=== PATIENT | male | born 1955 | race Caucasian/White ===

== ENCOUNTER 2017-12-30 14:44 | Inpatient (IN) ==
--- OUTSIDE RECORDS SUMMARY | 2017-12-30 15:14 | External Medical Summary | Continuity of Care Document ---
:1955 Author Organization Via [facility] Allergies Active Description Code Type Severity Reaction Onset Reported/ Identified Relationship Clinical to Patient Status Yes Penicillins Penic Aller I RASH 07/12/2010 illin gy s Yes penicillin NKMA N/A N/A 11/12/2013 Medications Medication Packaging Start Stop Route Dosage Sig Date Date PO 25 mg Hydrochlorothiazide 0 DAILY azithromycin(azithromyc 4 014 See in 250 mg oral tablet) Instructi ons, take 2 tabs today, then one daily for 4 days., 6 tabs lisinopril(lisinopril 5 015 See 20 mg oral tablet) Instructi ons, TAKE ONE TABLET BY MOUTH EVERY DAY, 90 tabs hydrochlorothiazide(hyd 5 015 See rochlorothiazide 25 mg Instructi oral tablet) ons, TAKE ONE TABLET BY MOUTH EVERY DAY, 90 tabs 1 tabs Oral 25 mg losartan(losartan 25 mg 5 016 25 mg=1 oral tablet) tabs, Oral, Daily, 90 tabs, 1 Refill(s) 1 tabs Oral 25 mg hydrochlorothiazide(hyd 6 016 25 mg=1 rochlorothiazide 25 mg tabs, oral tablet) Oral, Daily, for 90 days, 90 tabs, 1 Refill(s) 1 tabs Oral 50 mg losartan(losartan 50 mg 6 016 50 mg=1 oral tablet) tabs, Oral, Daily, 90 tabs, 1 Refill(s) 1 tabs Oral 12.5 mg carvedilol(Coreg 12.5 6 017 12.5 mg oral tablet) mg=1 tabs, Oral, Daily, 0 Refill(s) 1 tabs Oral sulfamethoxazole-trimet 6 016 1 tabs, hoprim(Bactrim DS 800 Oral, mg-160 mg oral tablet) BID, for 7 days, 14 tabs, 0 Refill(s) Coreg PO 12.5 mg 6 DAILY 1 tabs Oral 10 mg cyclobenzaprine(cyclobe 6 017 10 mg=1 nzaprine 10 mg oral tabs, tablet) Oral, TID, PRN: as needed for spasm, 60 tabs, 0 Refill(s) 1 tabs Oral 50 mg traMADol(traMADol 50 mg 6 50 mg=1 oral tablet) tabs, Oral, q12hr, S. Dillons, PRN: as needed for pain, 60 tabs, 0 Refill(s) zoster 0.65 mL SubCutaneous vaccine live(Zostavax 6 016 0.65 subcutaneous injection) mL, SubCutane ous, Once losartan(losartan 50 mg 6 017 See oral tablet) Instructi ons, TAKE ONE TABLET BY MOUTH DAILY, 90 tabs 1 caps Oral 500 mg cephalexin(Keflex 500 6 017 500 mg oral capsule) mg=1 caps, Oral, q6hr, for 14 days, 56 caps, 0 Refill(s) hydrochlorothiazide(hyd 7 017 See roCHLOROthiazide 25 mg Instructi oral tablet) ons, TAKE ONE TABLET BY MOUTH DAILY, 90 tabs 1 caps Oral 40 mg omeprazole(PriLOSEC 40 7 40 mg=1 mg oral delayed release caps, capsule) Oral, Daily, 30 caps, 0 Refill(s) 1 tabs Oral 81 mg aspirin(aspirin 81 mg 7 81 mg=1 oral tablet) tabs, Oral, Daily, 90 tabs, 0 Refill(s) Ecotrin PO 81 mg 8 DAILY Problems Date Dx Attending Type Code Diagnosis Diagnosed By Coded 12/07/2015 Luis Fernando Victoria K92.1 Irena M 12/07/2015 Luis Fernando Victoria Final Z80.0 Family history of M malignant neoplasm of digestive organs 12/07/2015 Luis Fernando Victoria L02.91 Cutaneous abscess, M unspecified 12/07/2015 Luis Fernando Victoria L57.0 Actinic keratosis M 12/07/2015 Luis Fernando Victoria L98.9 Disorder of the skin M and subcutaneous tissue, unspecified 12/07/2015 Luis Fernando Victoria Z85.828 Personal history of M other malignant neoplasm of skin 01/19/2016 Luis Fernando Victoria Z98.89 Other specified M postprocedural states 05/03/2016 Henry De Guzman Final I10 Essential (primary) W hypertension 05/03/2016 Henry De Guzman Final K62.5 Hemorrhage of anus W and rectum 05/03/2016 Henry De Guzman N20.0 Calculus of kidney W 07/13/2016 Dev Hernandez Final J32.0 Chronic maxillary E sinusitis 12/04/2016 Henry De Guzman I10 Essential (primary) W hypertension 12/04/2016 Henry De Guzman K21.9 Gastro-esophageal W reflux disease without esophagitis 12/04/2016 Henry De Guzman K62.5 Hemorrhage of anus W and rectum 12/04/2016 Henry De Guzman M54.9 Dorsalgia, W unspecified 12/04/2016 Henry De Guzman N20.0 Calculus of kidney W 12/04/2016 Henry De Guzman N28.9 Disorder of kidney W and ureter, unspecified 12/04/2016 Henry De Guzman Z12.5 Encounter for W screening for malignant neoplasm of prostate Procedures Code Description [place] [address] Destruction (eg, 12/07/2015 laser surgery, electrosurgery, cryosurgery, chemosurgery, surgical curettement), premalignant lesions (eg, actinic keratoses); first lesion 62924 Culture, 12/07/2015 bacterial; any other source except urine, blood or stool, aerobic, with isolation and presumptive identification of isolates.. 63671 Culture, 12/07/2015 bacterial; any source, except blood, anaerobic with isolation and presumptive identification of isolates.. 45205 Culture, typing; 12/07/2015 immunologic method, other than immunofluoresence (eg, agglutination grouping), per antiserum.. 93972 Susceptibility 12/07/2015 studies, antimicrobial agent; microdilution or agar dilution (minimum inhibitory concentration [OFE] or breakpoint), each multi-antimicrobial, per plate.. 32347 Office or other 12/07/2015 outpatient visit for the evaluation and management of an established patient, which requires at least 2 of these 3 nagy components: A detailed history; A detailed examination; Medical d 26863 Postoperative 01/19/2016 follow-up visit, normally included in the surgical package, to indicate that an evaluation and management service was performed during a postoperative period for [place] [address] Radiologic 05/03/2016 examination, spine, lumbosacral; 2 or 3 views.. 28625 Radiologic 05/03/2016 examination, [place] [address] Urinalysis, by 05/03/2016 dip stick or tablet reagent for bilirubin, glucose, hemoglobin, ketones, leukocytes, nitrite, pH, protein, specific gravity, urobilinogen, any number of these constituents; [place] w 900[address] Immunization 05/03/2016 administration (includes percutaneous, intradermal, subcutaneous, or intramuscular injections); 1 vaccine (single or combination vaccine/toxoid).. 55852 Zoster 05/03/2016 (shingles) vaccine (HZV), live, for subcutaneous injection 23773 Office or other 05/03/2016 outpatient visit for the evaluation and management of an established patient, which requires at least 2 of these 3 nagy components: A detailed history; A detailed examination; Medical d 34622 Collection of 12/04/2016 venous blood by venipuncture 29978 Comprehensive 12/04/2016 metabolic panel This panel must include the following: Albumin (32400) Bilirubin, total (99348) Calcium, total (76036) Carbon dioxide (bicarbonate) (77920) Chloride (51055) Creatinine (8 80686 Urinalysis, by 12/04/2016 dip stick or tablet reagent for bilirubin, glucose, hemoglobin, ketones, leukocytes, nitrite, pH, protein, specific gravity, urobilinogen, any number of these constituents; [place] w 61077 Prostate 12/04/2016 specific antigen (PSA); total 42964 Blood count; 12/04/2016 complete (CBC), automated (Hgb, Hct, RBC, WBC and platelet count) and automated differential WBC count 07975 Office or other 12/04/2016 outpatient visit for the evaluation and management of an established patient, which requires at least 2 of these 3 nagy components: A detailed history; A detailed examination; Medical d Results Test Result Range L100.0050 - 12/27/15 09:19 WBC - WHITE BLOOD COUNT 4.4 T/MM3 4.5-11.0 RED BLOOD COUNT 5.64 M/MM3 4.50-5.90 HGB - HEMOGLOBIN 15.8 GM/DL 13.5-17.5 HCT - HEMATOCRIT 47.5 % 41-53 MEAN CORPUSCULAR VOLUME 84.2 UM3 80-100 MEAN CORPUSCULAR HGB 28.0 UUG 26-34 MEAN CORPUSCULAR HGB CONC(MCHC 33.3 GM/DL 31-37 RDW STANDARD DEVIATION 40.3 FL 36.9-50.2 PLT - PLATELET COUNT 225 T/MM3 130-400 MEAN PLATELET VOLUME 10.0 UM3 9.4-12.4 NEUTROPHILS % (AUTO) 38.1 % 33-66 LYMPHOCYTES % (AUTO) 50.2 % 23-45 MONOCYTES % (AUTO) 11.0 % 0-9.0 EOSINOPHILS % (AUTO) 0.0 % 0-4 BASOPHILS % (AUTO) 0.7 % 0-2 IMMATURE GRANULOCYTE % (AUTO) 0.0 % 0.0-0.5 NEUTROPHILS # (AUTO) 1.7 T/MM3 1.8-7.7 LYMPHOCYTES # (AUTO) 2.2 T/MM3 1-4.8 MONOCYTES # (AUTO) 0.5 T/MM3 0-0.8 EOSINOPHILS # (AUTO) 0.0 T/MM3 0-0.5 BASOPHILS # (AUTO) 0.0 T/MM3 0-0.2 IMMATURE GRANULOCYTE # (AUTO) 0.00 T/MM3 0.00-0.03 L200.0050 - 12/27/15 09:19 ICTERUS 3 0-7 HEMOLYSIS < 15 0-25 Urinalysis with reflex microscopic - 05/03/16 16:16 Appearance Clear NA Bilirubin Negative NA Negative Blood Negative NA Negative Color Yellow NA Glucose, Urine Negative Negative Ketones Negative Negative Leukocyte Esterase Negative NA Negative Nitrites Negative NA Negative pH 6.0 NA 5.0-8.0 Protein Negative Negative Specific [place] 1.024 NA 1.003-1.030 UA Collection type Voided NA Urobilinogen 0.2 mg/dL <1.0 CBC With Platelet and Differential - 12/04/16 15:45 Absolute Basophils 0.04 10*3/uL 0.00-0.20 Absolute Eosinophils 0.23 10*3/uL 0.00-0.50 Absolute Lymphocytes 1.73 10*3/uL 0.80-3.30 Absolute Monocytes 0.45 10*3/uL 0.30-1.00 Absolute Neutrophils 3.40 10*3/uL 1.90-7.00 Basophils 1 % 0-2 Eosinophils 4 % 0-4 HCT 47.1 % 42.0-52.0 HGB 15.6 g/dL 14.0-18.0 Immature Granulocytes 0.2 % 0.0-1.0 Lymphocytes 30 % 20-46 MCH 27.8 pg 27.0-32.0 MCHC 33.1 g/dL 32.0-36.0 MCV 83.8 fL 82.0-99.0 Monocytes 8 % 4-11 MPV 11.3 fL 8.8-14.8 Neutrophils 58 % 51-75 Platelet Count 195 K/uL 150-400 RBC 5.62 10*6/uL 4.60-6.20 RDW 12.9 % 11.5-14.5 WBC 5.9 K/uL 4.8-10.8 Comprehensive Metabolic Panel (CMP) - 12/04/16 15:45 Albumin 4.3 g/dL 3.4-4.8 Alkaline Phosphatase 67 U/L 40-150 ALT (SGPT) 20 U/L 0-55 Anion Gap 9 mEq/L 3-20 AST (SGOT) 22 U/L 5-34 Bilirubin Total 1.2 mg/dL 0.2-1.2 BUN 21 mg/dL 8-26 Calcium 9.1 mg/dL 8.4-10.2 Chloride 105 mEq/L 99-111 CO2 27 mEq/L 23-31 Creatinine 1.08 mg/dL 0.72-1.25 Globulin 2.9 g/dL 1.8-4.0 Glucose 104 mg/dL 70-99 Potassium 3.8 mEq/L 3.5-5.2 Protein 7.2 g/dL 6.0-7.6 Sodium 141 mEq/L 135-144 eGFR - 12/04/16 15:45 eGFR >60 mL/min >60 PSA - 12/04/16 15:45 PSA 1.5 ng/mL 0.0-4.5 Urinalysis with reflex microscopic - 12/04/16 15:55 Appearance Clear NA Bilirubin Negative NA Negative Blood Negative NA Negative Color Yellow NA Glucose, Urine Negative Negative Ketones Negative Negative Leukocyte Esterase Negative NA Negative Nitrites Negative NA Negative pH 6.0 NA 5.0-8.0 Protein Negative Negative Specific [place] 1.015 NA 1.003-1.030 UA Collection type Voided NA Urobilinogen 0.2 mg/dL <1.0 Encounters ACCT No. Visit Discharge Status Pt. Type Provider Facility Loc./Unit Complaint Date/Time [id number] 10/06/2013 10/06/2013 CLS Outpatie 15:57:00 23:59:59 nt [id number]/05/2016 Document [id number] 05:16:33 Registra tion [id number] 08/24/2016 Document [id number] 05:16:58 Registra tion [id number] 07/14/2016 Document [id number] 05:17:01 Registra tion [id number] 06/21/2016 Document [id number] 05:16:39 Registra tion [id number] 05/04/2016 Document [id number] 05:17:30 Registra tion [id number] 12/08/2015 Document [id number] 05:16:56 Registra tion [id number] 11/02/2015 Document [id number] 05:16:46 Registra tion [id number] 05/05/2015 Document [id number] 14:07:16 Registra tion [id number] 05/05/2015 Document [id number] 13:37:26 Registra tion [id number] 05/05/2015 Document [id number] 09:44:28 Registra tion [id number] 12/30/2017 Document [id number] 15:09:00 Registra tion [id number] 12/17/2015 Document [id number] 07:38:00 Registra tion [id number] 12/04/2016 12/04/2016 DIS Outpatie Luinstra, Via [facility] New FM 6 mth rechk 6551 15:21:00 23:59:00 nt [facility] [id number] 07/13/2016 07/13/2016 DIS Outpatie Komarek, Via [facility] New IC SINUS PAIN 1029 12:58:00 23:59:00 nt Dev Jj [facility]ED [facility] [id number] 05/03/2016 05/03/2016 DIS Outpatie Luinstra, Via [facility] New FM TCPA 6 mo 3851 15:20:00 23:59:00 nt Henry Gab [facility]j [facility] [id number] 01/19/2016 01/19/2016 DIS Outpatie Nan Via [facility] [place] [address] 08:25:00 23:59:00 nt , Luis Fernando Jj [facility] [id number] 12/07/2015 12/07/2015 CLS Outpatie Nan Via [facility] Surg colonoscopy 3895 14:20:00 23:59:59 nt , Luis Fernando [facility]j [facility] [id number] 11/01/2015 11/01/2015 DIS Outpatie Luinstra, Via [facility] New FM NPT EST CARE 8235 15:23:00 23:59:00 nt Henry Jj REFERRAL TO Clinic NAN [id number] 03/08/2015 03/08/2015 DIS Outpatie Reilly, [facility] LEFT BIG TOE 1707 15:50:00 23:59:00 nt Jesus Good Анна Med [facility] Clinic [id number] 08/18/2014 08/18/2014 DIS Outpatie Nan Via [facility] New Surg suture 5056 15:53:00 23:59:00 nt Luis Fernando removal Clinic [id number] 08/05/2014 08/05/2014 CLS Outpatie Nan Via [facility] New Surg skin lesion 5532 13:58:00 23:59:59 nt , Luis Fernando Jj Clinic [id number] 07/03/2014 07/03/2014 DIS Outpatie Reilly, [facility] med check 4974 16:24:00 23:59:00 nt Jesus Good Анна Med Clinic [id number] 09/08/2014 Document 2922 15:36:00 Registra tion
--- OUTSIDE RECORDS SUMMARY | 2017-12-30 15:14 | External Medical Summary | Referral Summary ---
:1955 Author Organization [facility] Address [address] [place] [address] [place] [address] Care Team Providers Name Role Phone Jesus Reilly Primary Care Physician Encounter [facility] [id number] Date(s): 03/08/15 - 03/08/15 [facility] [address] [place] [address] [place] [phone] [place] Discharge Diagnosis: Essential hypertension Discharge Diagnosis: Onychomycosis with ingrown toenail Discharge Diagnosis: Cough due to SHARRI inhibitor Discharge Disposition: 01-Home or Self Care Attending Physician: Jesus Reilly MD Admitting Physician: Jesus Reilly MD Vital Signs Most recent to oldest [Reference Range]: 1 Temperature Tympanic [36.6-38.1 degC] 36.7 degC (03/08/15 4:01 PM) Peripheral Pulse Rate [60-100 bpm] 73 bpm (03/08/15 4:01 PM) Blood Pressure [90-140/60-90 mmHg] 130/94 mmHg (03/08/15 4:01 PM) SpO2 97 % (03/08/15 4:01 PM) Problem List Condition Effective Dates Status Health Status Informant Acute bronchitis(Confirmed) Active Acute maxillary sinusitis(Confirmed) Active Benign essential Active hypertension(Confirmed) Unspecified sinusitis Active (chronic)(Confirmed) 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) Unspecified hearing loss(Confirmed) Active Hiatal hernia(Confirmed) Active Kidney disease(Confirmed) Active Kidney stones(Confirmed) Active Schatzki's ring(Confirmed) Active Allergies, Adverse Reactions, Alerts Substance Reaction Severity Status penicillin Active Medications hydrochlorothiazide 25 mg oral tablet See Instructions, TAKE ONE TABLET BY MOUTH EVERY DAY, # 90 tabs, eRx: [facility] #[id number], TAKEONE TABLET BY MOUTH EVERY DAY Start Date: 04/09/15 Status: OrderedLISINOPRIL 20 MG TABLET See Instructions, TAKE ONE TABLET BY MOUTH EVERY DAY, # 90 tabs, eRx: [facility] #[id number], TAKEONE TABLET BY MOUTH EVERY DAY Start Date: 06/26/14 Status: Orderedlosartan 25 mg oral tablet 25 mg 1 tabs, Oral, Daily, # 90 tabs, 1 Refill(s), Pharmacy: [facility] # [id number], 1 tabs Oral Daily Start Date: 03/08/15 Status: OrderedNon-Formulary Med See Instructions, blood pressure, 0 Refill(s) Start Date: 03/14/14 Status: Ordered Results No data available for this section Immunizations Vaccine Date Refusal Reason tetanus/diphth/pertuss (Tdap) adult/adol 06/27/10 influenza virus vaccine, live 06/27/10 Procedures Procedure Date Related Diagnosis Body Site Excision of basal cell carcinoma1 08/05/14 Balloon dilatation of esophagus 2011 Esophagogastroduodenoscopy2, 3 2011 Colonoscopy-normal 2009 Colonoscopy4, 5 2006 Colonoscopy-normal 1999 Hospitalization - left hand injury 1970 1above left [id number] EGD: Benign polyp, GERD-TX w/PPI. Swallowing improved. F/U [id number] hernia. Schatski's laes6cowprcuytwk polyp with low grade [id number] NL, +Fam hx repeat in 5 yrs. 2009 Social History Social History Type Response Smoking Status Never smoker Assessment and Plan Extracted from: Title: Ambulatory Patient Education Author: Jesus Reilly MD Date: Family Medicine Hypertension Hypertension, commonly called high blood pressure, is when the force of blood pumping through your arteries is too strong. Your arteries are the blood vessels that carry blood from your heart throughout your body. A blood pressure reading consists of a higher number over a lower number, such as 110/72. The higher number (systolic) is the pressure inside your arteries when your heart pumps. The lower n umber (diastolic) is the pressure inside your arteries when your heart relaxes. Ideally you want your blood pressure below 120/80. Hypertension forces your heart to work harder to pump blood. Your arteries may become narrow or stiff. Having hypertension puts you at risk for heart disease, stroke, and other problems. RISK FACTORS Some risk factors for high blood pressure are controllable. Others are not. Risk factors you cannot control include: Race. You may be at higher risk if you are . Age. Risk increases with age. Gender. Men are at higher risk than women before age 45 years. After age 65, women are at higher risk than men. Risk factors you can control include: Not getting enough exercise or physical activity. Being overweight. Getting too much fat, sugar, calories, or salt in your diet. Drinking too much alcohol. SIGNS AND SYMPTOMS Hypertension does not usually cause signs or symptoms. Extremely high blood pressure (hypertensive crisis) may cause headache, anxiety, shortness of breath , and nosebleed. DIAGNOSIS To check if you have hypertension, your health care provider will measure your blood pressure while you are seated, with your arm held at the level of your heart. It should be measured at least twice us ing the same arm. Certain conditions can cause a difference in blood pressure between your right and left arms. A blood pressure reading that is higher than normal on one occasion does not mean that you need treatment. If one blood pressure reading is high, ask your health care provider about having it checked again. TREATMENT Treating high blood pressure includes making lifestyle changes and possibly taking medication. Living a healthy lifestyle can help lower high blood pressure. You may need to change some of your habits. Lifestyle changes may include: Following the DASH diet. This diet is high in fruits, vegetables, and whole grains. It is low in salt, red meat, and added sugars. Getting at least 2 1/2 hours of brisk physical activity every week. Losing weight if necessary. Not smoking. Limiting alcoholic beverages. Learning ways to reduce stress. If lifestyle changes are not enough to get your blood pressure under control , your health care provider may prescribe medicine. You may need to take more than one. Work closely with your health care provider to understand the risks and benefits. HOME CARE INSTRUCTIONS Have your blood pressure rechecked as directed by your health care provider. Only take medicine as directed by your health care provider. Follow the directions carefully. Blood pressure medicines must be taken as prescribed. The medicine does not work as well when you skip doses. Skipping doses also puts you at risk for problems. Do not smoke. Monitor your blood pressure at home as directed by your health care provider. SEEK MEDICAL CARE IF: You think you are having a reaction to medicines taken. You have recurrent headaches or feel dizzy. You have swelling in your ankles. You have trouble with your vision. SEEK IMMEDIATE MEDICAL CARE IF: You develop a severe headache or confusion. You have unusual weakness, numbness, or feel faint. You have severe chest or abdominal pain. You vomit repeatedly. You have trouble breathing. MAKE SURE YOU: Understand these instructions. Will watch your condition. Will get help right away if you are not doing well or get worse. Document Released: 07/02/2006 Document Revised: 07/07/2014 Document Reviewed: 04/24/2014 ExitCare Patient Information 2015 [employer]. This information is not intended to replace advice given to you by your health care provider. Make sure you discuss any questions you have with your health care provider. Follow Up With: Where: When: Jesus Reilly [address] [place] [address] Drive; [place] [address] [place] (8) Within 1 to 2 weeks, only if needed Comments: Extracted from: Title: Office Visit Note Author: Jesus Reilly MD Date: 03/08/15 Assessment/Plan Cough due to SAHRRI inhibitor He will be changed from lisinopril to losartan 25 mg daily. Essential hypertension He was advised to call his blood pressure measurements and as needed. Orders: losartan, 25 mg 1 tabs, Oral, Daily, # 90 tabs, 1 Refill(s), Pharmacy : [facility] #[id number], 1 tabs Oral Daily Addendum by Jesus Reilly MD on Ingrown toenail and onychomycosis: He will be March 08, 2015 16:37:24 CDT scheduled for podiatry consult with Dr. Lucas
--- OUTSIDE RECORDS SUMMARY | 2017-12-30 15:14 | External Medical Summary | Referral Summary ---
:1955 Author Organization [facility] Address [address] [place] [address] [place] [id number] Care Team Providers Name Role Phone eHnry De Guzman Primary Care Physician Encounter VC Date(s): 12/07/15 - 12/07/15 [facility] [address] [place] [address] [place] [phone] [place] Discharge Diagnosis: Family history of colon cancer Discharge Diagnosis: History of basal cell cancer Discharge Diagnosis: Changing skin lesion Discharge Diagnosis: Floyd blood in stool Discharge Diagnosis: AK (actinic keratosis) Discharge Diagnosis: Abscess Discharge Disposition: 01-Home or Self Care Attending Physician: Luis Fernando Victoria MD Admitting Physician: Luis Fernando Victoria MD Referring Physician: Henry De Guzman MD Vital Signs Most recent to oldest [Reference Range]: 1 Temperature Tympanic [36.6-38.1 degC] 37.4 degC (12/07/15 2:27 PM) Blood Pressure [90-140/60-90 mmHg] 140/88 mmHg (12/07/15 2:27 PM) Mean Arterial Pressure, Cuff 105 mmHg (12/07/15 2:27 PM) Problem List Condition Effective Dates Status Health Status Informant Acute bronchitis(Confirmed) Active Acute maxillary sinusitis(Confirmed) Active BCC (basal cell carcinoma)(Confirmed) Active Benign essential Active hypertension(Confirmed) Unspecified sinusitis Active (chronic)(Confirmed) 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) Unspecified hearing loss(Confirmed) Active Hiatal hernia(Confirmed) Active Kidney disease(Confirmed) Active Kidney stones(Confirmed) Active Bright red rectal bleeding(Confirmed) Active Schatzki's ring(Confirmed) Active Allergies, Adverse Reactions, Alerts Substance Reaction Severity Status penicillin Active Medications Bactrim DS 800 mg-160 mg oral tablet 1 tabs, Oral, BID, X 7 days, # 14 tabs, 0 Refill(s), Pharmacy: [facility] #[id number] Start Date: 12/07/15 Stop Date: 12/14/15 Status: OrderedCoreg 12.5 mg oral tablet 12.5 mg 1 tabs, Oral, Daily, 0 Refill(s) Start Date: 12/07/15 Status: Orderedhydrochlorothiazide 25 mg oral tablet 25 mg 1 tabs, Oral, Daily, X 90 days, # 90 tabs, 1 Refill(s), Pharmacy: [facility] #[id number], 1 tabs Oral Daily,x90 days Start Date: 11/01/15 Stop Date: 04/29/16 Status: Ordered Results No data available for this section Immunizations Vaccine Date Refusal Reason tetanus/diphth/pertuss (Tdap) adult/adol 06/27/10 influenza virus vaccine, live 06/27/10 Procedures Procedure Date Related Diagnosis Body Site Destruction (eg, laser surgery, electrosurgery, 12/07/15 cryosurgery, chemosurgery, surgical curettement), premalignant lesions (eg, actinic keratoses); first lesion Excision of basal cell carcinoma1 08/05/14 Balloon dilatation of esophagus 2011 Esophagogastroduodenoscopy2, 3 2011 Colonoscopy-normal 2009 Colonoscopy4, 5 2006 Colonoscopy-normal 1999 Hospitalization - left hand injury 1970 1above left [id number] EGD: Benign polyp, GERD-TX w/PPI. Swallowing improved. F/U [id number] hernia. Schatski's [id number] polyp with low grade [id number] NL, +Fam hx repeat in 5 yrs. 2009 Social History Social History Type Response Smoking Status Never smoker Assessment and Plan Extracted from: Title: Ambulatory Patient Education Author: Luis Fernando Victoria MD Date: Family Medicine Basal Cell Carcinoma Basal cell carcinoma is the most common form of skin cancer. It begins in the basal cells, which are at the bottom of the outer skin layer (epidermis). CAUSES Sun exposure is the most common cause of basal cell carcinoma. Basal cell carcinoma occurs most often on parts of the body that are frequently exposed to the sun, including the: Scalp. Ears. Neck. Face. Arms. Backs of the hands. Legs. However, basal cell carcinoma can occur anywhere on the body. Rarely, tumors develop on areas not exposed to the sun. Other causes of basal cell carcinoma can include: Exposure to arsenic. Exposure to radiation. Certain genetic syndromes, such as xeroderma pigmentosum. RISK FACTORS People at highest risk for basal cell carcinoma include those with: Fair skin. Blonde or red hair. Blue, green, or muniz eyes. Childhood freckling. Factors that increase your risk for basal cell carcinoma include: Sun exposure over long periods of time. Childhood sun exposure appears to be a more significant factor than sun exposure as an adult. Repeated sunburns. Use of tanning beds. Having a weakened immune system. SYMPTOMS Five signs of basal cell carcinoma are: An open sore that bleeds, oozes, or crusts. The sore may remain open for 3 or more weeks. This can be an early sign of basal cell carcinoma. Basal cell carcinoma can mimic a pimple that will not heal. A reddish or irritated area which may crust, itch, or cause discomfort. This may occur on areas expose d to the sun. These patches might be easier felt than seen. A shiny, pearly, or translucent bump that is pink, red, or white. The bump may also be chawla, black, or brown, especially in dark haired people. These bumps can be confused with moles. A pink growth with a slightly elevated, rolled border, and a crusted indentation in the center. As the growth slowly enlarges, tiny blood vessels may develop on the surface. A scar-like white, yellow, or waxy area that looks like shiny, stretched skin. It often has irregular borders. This may be a sign of more aggressive basal cell carcinoma. DIAGNOSIS Your caregiver may be able to tell what is wrong by doing a physical exam. Often, a tissue sample (biopsy) is also taken. The tissue is examined under a microscope. TREATMENT The treatment for basal cell carcinoma depends on the type, size, location, and number of tumors. Possible treatments include: Mohs surgery. This is a procedure done by a skin doctor (anesthesia director or Mohs surgeon) in his or her office. The cancerous cells are removed layer by layer. This treatment has a high cure rate. Surgical removal of the tumor. Freezing the tumor with liquid nitrogen (cryosurgery). Plastic surgery to remove the tumor, in the case of large tumors. Radiation. This may be used for tumors on the face. Photodynamic therapy. A chemical cream is applied to the skin and light exposure is used to activate the chemical. Chemical treatments, such as imiquimod cream and interferon injections. This may be used to remove superficial tumors with minimal scarring. Electrodesiccation and curettage. This involves alternately scraping and burning the tumor, using an electric current to control bleeding. Basal cell carcinoma can almost always be cured. It rarely spreads to other areas of the body (metastasizes). Basal cell carcinoma may come back at the same location (recur), but it can be treated again if this occurs. PREVENTION Avoid the sun between 10:00 a.m. and 4:00 pm when it is the strongest. Use a sunscreen or sunblock with a sun protection factor of 30 or greater. Apply sunscreen at least 30 minutes before exposure to the sun. Reapply sunscreen every 2 to 4 hours while you are outside, after swimming, and after excessive sweating. Always wear protective hats, clothing, and sunglasses with ultraviolet protection. Avoid tanning beds. HOME CARE INSTRUCTIONS Avoid unprotected sun exposure. Follow your caregiver's instructions for self-exams. Look for new spots or changes in your skin. Keep all follow-up appointments as directed by your caregiver. SEEK MEDICAL CARE IF: You notice any new spots or changes in your skin. You have had a basal cell carcinoma tumor removed and you notice a new growth in the same location. This information is not intended to replace advice given to you by your health care provider. Make sure you discuss any questions you have with your health care provider. Document Released: 01/06/2004 Document Revised: 12/31/2012 Document Reviewed: 03/25/2012 ExitCare Patient Information 2015 [employer] [facility]. No follow up information was provided.
--- OUTSIDE RECORDS SUMMARY | 2017-12-30 15:14 | External Medical Summary | Referral Summary ---
:1955 Author [facility] Address [address] [place] [address] [place] [phone] Care Team Providers Name Role Phone Henry De Guzman Primary Care Physician Encounter Date(s): 05/03/16 - 05/03/16 [facility] [place] [phone] [place] Discharge Diagnosis: Benign essential hypertension Discharge Diagnosis: Kidney stones Discharge Diagnosis: Bright red rectal bleeding Discharge Disposition: 01-Home or Self Care Attending Physician: Henry De Guzman MD Admitting Physician: Henry De Guzman MD Vital Signs Most recent to oldest [Reference Range]: 1 Blood Pressure [90-140/60-90 mmHg] 140/100 mmHg (05/03/16 3:33 PM) Problem List Condition Effective Dates Status Health Status Informant Acute bronchitis(Confirmed) Active Acute maxillary sinusitis(Confirmed) Active BCC (basal cell carcinoma)(Confirmed) Active Benign essential Active hypertension(Confirmed) Unspecified sinusitis Active (chronic)(Confirmed) 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) Unspecified hearing loss(Confirmed) Active Hiatal hernia(Confirmed) Active Kidney disease(Confirmed) Active Kidney stones(Confirmed) Active Methicillin resistant Staphylococcus Active aureus(Confirmed)1 Bright red rectal bleeding(Confirmed) Active Schatzki's ring(Confirmed) Active 1Abscess from Leg R collected 12/07/15 15:12:00 CDT Allergies, Adverse Reactions, Alerts Substance Reaction Severity Status penicillin Active Medications Coreg 12.5 mg oral tablet 12.5 mg 1 tabs, Oral, Daily, 0 Refill(s) Start Date: 12/07/15 Status: Orderedcyclobenzaprine 10 mg oral tablet 10 mg 1 tabs, Oral, TID, as needed for spasm, # 60 tabs, 0 Refill(s), Pharmacy: [facility] #[id number], 1 tabs Oral TID,PRN:as needed for spasm Start Date: 05/03/16 Status: OrderedtraMADol 50 mg oral tablet 50 mg 1 tabs, Oral, q12hr, as needed for pain, S. Alfonso, # 60 tabs, 0 Refill(s ) Start Date: 05/03/16 Status: Ordered Results Urinalysis Most recent to oldest [Reference Range]: 1 UA Color Yellow (05/03/16 4:16 PM) UA Appear Clear (05/03/16 4:16 PM) UA pH [5.0-8.0] 6.0 (05/03/16 4:16 PM) UA Leuk Est [Negative] Negative (05/03/16 4:16 PM) UA Nitrite [Negative] Negative (05/03/16 4:16 PM) UA Protein [Negative] Negative (05/03/16 4:16 PM) UA Glucose [Negative] Negative (05/03/16 4:16 PM) UA Ketones [Negative] Negative (05/03/16 4:16 PM) UA Urobilinogen [<1.0 mg/dL] 0.2 mg/dL (05/03/16 4:16 PM) UA Bili [Negative] Negative (05/03/16 4:16 PM) UA Blood [Negative] Negative (05/03/16 4:16 PM) UA Spec Grav [1.003-1.030] 1.024 (05/03/16 4:16 PM) Type Voided (05/03/16 4:16 PM) Immunizations Vaccine Date Refusal Reason tetanus/diphth/pertuss (Tdap) adult/adol 06/27/10 influenza virus vaccine, live 06/27/10 zoster vaccine live 05/03/16 Procedures Procedure Date Related Diagnosis Body Site Colonoscopy normal1 12/27/15 Excision of basal cell carcinoma2 08/05/14 Balloon dilatation of esophagus 2011 Esophagogastroduodenoscopy3, 4 2011 Colonoscopy-normal 2009 Colonoscopy5, 6 2006 Colonoscopy-normal 1999 Hospitalization - left hand injury 1970 1Hyperplastic polyp, family history colon cancer in 2 first-degree relatives, diverticulosis, repeat in 5 [id number] left [id number] EGD: Benign polyp, GERD-TX w/PPI. Swallowing improved. F/U [id number] hernia. Schatski's [id number] polyp with low grade [id number]-odmht NL, +Fam hx repeat in 5 yrs. 2010 Social History Social History Type Response Smoking Status Never smoker Assessment and Plan Extracted from: Title: Ambulatory Patient Education Author: Henry De Guzman MD Date: 05/03 Musculoskeletal Back Pain, Adult Back pain is very common in adults.The cause of back pain is rarely dangerous and the pain often gets better over time.The cause of your back pain may not be known. Some common causes of back pain include: Strain of the muscles or ligaments supporting the spine. Wear and tear (degeneration) of the spinal disks. Arthritis. Direct injury to the back. For many people, back pain may return. Since back pain is rarely dangerous, most people can learn to manage this condition on their own. HOME CARE INSTRUCTIONS Watch your back pain for any changes. The following actions may help to lessen any discomfort you are feeling: Remain active. 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 Do not sit, drive, or dye boarding machine operator one place for more than 30 minutes at a time. Take short walks on even surfaces as soon as you are able.Try to increase the length of time you walk each day. Exercise regularly as directed by your health care provider. Exercise helps your back heal faster. It also helps avoid future injury by keeping your muscles strong and flexible. Do not stay in bed.Resting more than 12 days can delay your recovery. Pay attention to your body when you bend and lift. The most comfortable positions are those that put less stress on your recovering back. Always use proper lifting techniques, including: Bending your knees. Keeping the load close to your body. Avoiding twisting. Find a comfortable position to sleep. Use a firm mattress and lie on your side with your knees slightly bent. If you lie on your back, put a pillow under your knees. Avoid feeling anxious or stressed.Stress increases muscle tension and can worsen back pain.It is important to recognize when you are anxious or stressed and learn ways to manage it, such as with exercise. Take medicines only as directed by your health care provider. Over-the- counter medicines to reduce pain and inflammation are often the most helpful. Your health care provider may prescribe muscl e relaxant drugs.These medicines help dull your pain so you can more quickly return to your normal activities and healthy exercise. Apply ice to the injured area: Put ice in a plastic bag. Place a towel between your skin and the bag. Leave the ice on for 20 minutes, 23 times a day for the first 23 days. After that, ice and heat may be alternated to reduce pain and spasms. Maintain a healthy weight. Excess weight puts extra stress on your back and makes it difficult to maintain good posture. SEEK MEDICAL CARE IF: You have pain that is not relieved with rest or medicine. You have increasing pain going down into the legs or buttocks. You have pain that does not improve in one week. You have night pain. You lose weight. You have a fever or chills. SEEK IMMEDIATE MEDICAL CARE IF: You develop new bowel or bladder control problems. You have unusual weakness or numbness in your arms or legs. You develop nausea or vomiting. You develop abdominal pain. You feel faint. This information is not intended to replace advice given to you by your health care provider. Make sure you discuss any questions you have with your health care provider. Document Released: 07/02/2006 Document Revised: 07/23/2015 Document Reviewed: 11/03/2014 [employer] Patient Education 2016 [employer] No follow up information was provided. Extracted from: Title: Office Visit Note Author: Henry De Guzman MD Date: 05/03/16 Assessment/Plan Back pain Flexeril 10mg po tid prn, ultram 50mg po bid prn, maycause sedation. Xrays pending, possibly needs an MRI if not improving. A work/school note was offered and deferred by the patient. Ordered: Urinalysis with Culture if Indicated XR Spine Lumbosacral 2 or 3 Views Benign essential hypertension This issue was reviewed, appears stable, and current therapy continued except as mentioned. Appropriate lab was reviewed from the most recent appropriate entry and lab was ordered if needed in the cpoe/nursing orders, and follow up recommended generally in 90 days and no later then six months. Refil meds. Is supposed to have losartan as well. He is to call wit h the meds he is taking. Was switched to losartan due to cough that is still resolved. Refill coreg. Bright red rectal bleeding The patient's issue is nearly or completely resolved. There is no further issues or testing desired by them at this time. 1.Post-operative state Pathology from the right face indicate basal cell carcinoma of both areas , final margins of excision free of involvement. Colonoscopy pathology indicates colonic mucosa with mild hyperplastic changes at 45 cm. With his family history of colon cancer in father and sister, recommendations are to repeat colonoscopy in 5 yea rs. There were no abnormalities noted to explain the rectal bleeding. Ordered: Postoperative Est [id number] [1] Hip pain Xray pending. Meds given. Ordered: Urinalysis with Culture if Indicated XR Hip w Pelvis when perform 2-3 vws LT Immunization due Shingles vaccine per request. Kidney stones The patient's issue is nearly or completely resolved. There is no further issues or testing desired by them at this time. UA pending due to back pain.
--- OUTSIDE RECORDS SUMMARY | 2017-12-30 15:14 | External Medical Summary | Referral Summary ---
:1955 Author Organization [facility], [place] [place] [address] Care Team Providers Name Role Phone Henry De Guzman Primary Care Physician Encounter [facility] [id number] Date(s): 12/04/16 - 12/04/16 [facility] [place] [place] [address] Discharge Diagnosis: Kidney stones Discharge Diagnosis: Bright red rectal bleeding Discharge Diagnosis: Benign essential hypertension Discharge Diagnosis: GERD without esophagitis Discharge Diagnosis: Encounter for screening for malignant neoplasm of prostate Discharge Diagnosis: Chronic back pain Discharge Diagnosis: Kidney disease Discharge Disposition: 01-Home or Self Care Attending Physician: Henry De Guzman MD Admitting Physician: Henry De Guzman MD Vital Signs Most recent to oldest [Reference Range]: 1 Blood Pressure [90-140/60-90 mmHg] 130/90 mmHg (12/04/16 3:29 PM) Problem List Condition Effective Dates Status Health Status Informant Acute bronchitis(Confirmed) Active Acute maxillary sinusitis(Confirmed) Active BCC (basal cell carcinoma)(Confirmed) Active Benign essential Active hypertension(Confirmed) Chronic back pain(Confirmed) Active Unspecified sinusitis Active (chronic)(Confirmed) 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) Unspecified hearing loss(Confirmed) Active Hiatal hernia(Confirmed) Active Kidney disease(Confirmed) Active Kidney stones(Confirmed) Active Methicillin resistant Staphylococcus Active aureus(Confirmed)1 Bright red rectal bleeding(Confirmed) Active Schatzki's ring(Confirmed) Active 1Abscess from Leg R collected 12/07/15 15:12:00 CDT Allergies, Adverse Reactions, Alerts Substance Reaction Severity Status penicillin Active Medications aspirin 81 mg oral tablet 81 mg 1 tabs, Oral, Daily, # 90 tabs, 0 Refill(s), other reason (Rx) Start Date: 12/04/16 Status: OrderedhydroCHLOROthiazide 25 mg oral tablet See Instructions, TAKE ONE TABLET BY MOUTH DAILY, # 90 tabs, eRx: [facility] #[id number], TAKE ONETABLET BY MOUTH DAILY Start Date: 08/23/16 Status: Orderedlosartan 50 mg oral tablet See Instructions, TAKE ONE TABLET BY MOUTH DAILY, # 90 tabs, eRx: [facility] #[id number] Start Date: 09/25/16 Status: OrderedPriLOSEC 40 mg oral delayed release capsule 40 mg 1 caps, Oral, Daily, # 30 caps, 0 Refill(s), Pharmacy: [facility] # [id number], 1 caps Oral Daily Start Date: 12/04/16 Status: OrderedtraMADol 50 mg oral tablet 50 mg 1 tabs, Oral, q12hr, as needed for pain, [place], # 60 tabs, 0 Refill(s ) Start Date: 05/03/16 Status: Ordered Results Hematology Most recent to oldest [Reference Range]: 1 WBC [4.8-10.8 10*3/uL] 5.9 10*3/uL (12/04/16 3:45 PM) RBC [4.60-6.20] 5.62 (12/04/16 3:45 PM) Hgb [14.0-18.0 gm/dL] 15.6 gm/dL (12/04/16 3:45 PM) Hct [42.0-52.0 %] 47.1 % (12/04/16 3:45 PM) MCV [82.0-99.0 fL] 83.8 fL (12/04/16 3:45 PM) MCH [27.0-32.0 pg] 27.8 pg (12/04/16 3:45 PM) MCHC [32.0-36.0 gm/dL] 33.1 gm/dL (12/04/16 3:45 PM) RDW [11.5-14.5 %] 12.9 % (12/04/16 3:45 PM) Platelet [150-400 10*3/uL] 195 10*3/uL (12/04/16 3:45 PM) MPV [8.8-14.8 fL] 11.3 fL (12/04/16 3:45 PM) Immature Granulocytes [0.0-1.0 %] 0.2 % (12/04/16 3:45 PM) Neutrophils [51-75 %] 58 % (12/04/16 3:45 PM) Lymphocytes [20-46 %] 30 % (12/04/16 3:45 PM) Monocytes [4-11 %] 8 % (12/04/16 3:45 PM) Eosinophils [0-4 %] 4 % (12/04/16 3:45 PM) Basophils [0-2 %] 1 % (12/04/16 3:45 PM) Neutro Absolute [1.90-7.00] 3.40 (12/04/16 3:45 PM) Lymph Absolute [0.80-3.30] 1.73 (12/04/16 3:45 PM) [place] Absolute [0.30-1.00] 0.45 (12/04/16 3:45 PM) Eos Absolute [0.00-0.50] 0.23 (12/04/16 3:45 PM) Baso Absolute [0.00-0.20] 0.04 (12/04/16 3:45 PM) Chemistry Most recent to oldest [Reference Range]: 1 Sodium Lvl [135-144 mEq/L] 141 mEq/L (12/04/16 3:45 PM) Potassium Lvl [3.5-5.2 mEq/L] 3.8 mEq/L (12/04/16 3:45 PM) Chloride [99-111 mEq/L] 105 mEq/L (12/04/16 3:45 PM) CO2 [23-31 mEq/L] 27 mEq/L (12/04/16 3:45 PM) AGAP [3-20 mEq/L] 9 mEq/L (12/04/16 3:45 PM) BUN [8-26 mg/dL] 21 mg/dL (12/04/16 3:45 PM) Glucose Lvl [70-99 mg/dL] 104 mg/dL *HI* (12/04/16 3:45 PM) Creatinine Lvl [0.72-1.25 mg/dL] 1.08 mg/dL (12/04/16 3:45 PM) eGFR [>60 mL/min] >60 mL/min 1 (12/04/16 3:45 PM) Calcium Lvl [8.4-10.2 mg/dL] 9.1 mg/dL (12/04/16 3:45 PM) Albumin Lvl [3.4-4.8 gm/dL] 4.3 gm/dL (12/04/16 3:45 PM) Total Protein [6.0-7.6 gm/dL] 7.2 gm/dL (12/04/16 3:45 PM) Globulin [1.8-4.0 gm/dL] 2.9 gm/dL (12/04/16 3:45 PM) ALT [0-55 U/L] 20 U/L (12/04/16 3:45 PM) AST [5-34 U/L] 22 U/L (12/04/16 3:45 PM) Alk Phos [40-150 U/L] 67 U/L (12/04/16 3:45 PM) Bili Total [0.2-1.2 mg/dL] 1.2 mg/dL (12/04/16 3:45 PM) PSA (wihout Reflex Free) [0.0-4.5 ng/mL] 1.5 ng/mL 2 (12/04/16 3:45 PM) 1Result Comment: Multiply eGFR results by 1.21 for race.2Result Comment: AUA PSA Best Practice Guidelines: Age-Adjusted PSA Values by Ethnic Group Age Range Asians - Caucasians Americans 40-49 0-2.0 0-2.0 0-2.5 50-59 0-3.0 0-4.0 0-3.5 60-69 0-4.0 0-4.5 0-4.5 70-79 0-5.0 0-5.5 0-6.5Urinalysis Most recent to oldest [Reference Range]: 1 UA Color Yellow (12/04/16 3:55 PM) UA Appear Clear (12/04/16 3:55 PM) UA pH [5.0-8.0] 6.0 (12/04/16 3:55 PM) UA Leuk Est [Negative] Negative (12/04/16 3:55 PM) UA Nitrite [Negative] Negative (12/04/16 3:55 PM) UA Protein [Negative] Negative (12/04/16 3:55 PM) UA Glucose [Negative] Negative (12/04/16 3:55 PM) UA Ketones [Negative] Negative (12/04/16 3:55 PM) UA Urobilinogen [<1.0 mg/dL] 0.2 mg/dL (12/04/16 3:55 PM) UA Bili [Negative] Negative (12/04/16 3:55 PM) UA Blood [Negative] Negative (12/04/16 3:55 PM) UA Spec Grav [1.003-1.030] 1.015 (12/04/16 3:55 PM) Type Voided (12/04/16 3:55 PM) Immunizations Given and Recorded Vaccine Date Status Refusal Reason tetanus/diphth/pertuss (Tdap) adult/adol 06/27/10 Recorded influenza virus vaccine, live 06/27/10 Given zoster vaccine live 05/03/16 Given Procedures Procedure Date Related Diagnosis Body Site Colonoscopy normal1 12/27/15 Excision of basal cell carcinoma2 08/05/14 Balloon dilatation of esophagus 2011 Esophagogastroduodenoscopy3, 4 2011 Colonoscopy-normal 2009 Colonoscopy5, 6 2006 Colonoscopy-normal 1999 Hospitalization - left hand injury 1970 1Hyperplastic polyp, family history colon cancer in 2 first-degree relatives, diverticulosis, repeat in 5 [id number] left [id number] EGD: Benign polyp, GERD-TX w/PPI. Swallowing improved. F/U [id number] hernia. Schatski's [id number] polyp with low grade exoprjbye1D-seuob NL, +Fam hx repeat in 5 yrs. 2010 Social History Social History Type Response Smoking Status Never smoker Assessment and Plan Extracted from: Title: Ambulatory Patient Education Author: Henry De Guzman MD Date: Preventive Health Back Exercises The following exercises strengthen the muscles that help to support the back. They also help to keep the lower back flexible. Doing these exercises can help to prevent back pain or lessen existing pain. If you have back pain or discomfort, try doing these exercises 23 times each day or as told by your health care provider. When the pain goes away, do them once each day, but increase the number of ti mes that you repeat the steps for each exercise (do more repetitions). If you do not have back pain or discomfort, do these exercises once each day or as told by your health care provider. EXERCISES Single Knee to Chest Repeat these steps 35 times for each le. Lie on your back on a firm bed or the floor with your legs extended. 2. Bring one knee to your chest. Your other leg should stay extended and in contact with the floor. 3. Hold your knee in place by grabbing your knee or thigh. 4. Pull on your knee until you feel a gentle stretch in your lower back. 5. Hold the stretch for 1030 seconds. 6. Slowly release and straighten your leg. Pelvic Tilt Repeat these steps 510 times: 1. Lie on your back on a firm bed or the floor with your legs extended. 2. Bend your knees so they are pointing toward the ceiling and your feet are flat on the floor. 3. Tighten your lower abdominal muscles to press your lower back against the floor. This motion will tilt your pelvis so your tailbone points up toward the ceiling instead of pointing to your feet or the floor. 4. With gentle tension and even breathing, hold this position for 510 seconds. CatCow Repeat these steps until your lower back becomes more flexible: 1. Get into a fpxez-yrr-ltaop position on a firm surface. Keep your hands under your shoulders, and keep your knees under your hips. You may place padding under your knees for comfort. 2. Let your head hang down, and point your tailbone toward the floor so your lower back becomes rounded like the back of a cat. 3. Hold this position for 5 seconds. 4. Slowly lift your head and point your tailbone up toward the ceiling so your back forms a sagging arch like the back of a cow. 5. Hold this position for 5 seconds. Press-Ups Repeat these steps 510 times: 1. Lie on your abdomen (face-down) on the floor. 2. Place your palms near your head, about shoulder-width apart. 3. While you keep your back as relaxed as possible and keep your hips on the floor, slowly straighten your arms to raise the top half of your body and lift your shoulders. Do not use your back muscles t o raise your upper torso. You may adjust the placement of your hands to make yourself more comfortable. 4. Hold this position for 5 seconds while you keep your back relaxed. 5. Slowly return to lying flat on the floor. Bridges Repeat these steps 10 times: 1. Lie on your back on a firm surface. 2. Bend your knees so they are pointing toward the ceiling and your feet are flat on the floor. 3. Tighten your buttocks muscles and lift your buttocks off of the floor until your waist is at almost the same height as your knees. You should feel the muscles working in your buttocks and the back of your thighs. If you do not feel these muscles, slide your feet 12 inches farther away from your buttocks. 4. Hold this position for 35 seconds. 5. Slowly lower your hips to the starting position, and allow your buttocks muscles to relax completely. If this exercise is too easy, try doing it with your arms crossed over your chest. Abdominal Crunches Repeat these steps 510 times: 1. Lie on your back on a firm bed or the floor with your legs extended. 2. Bend your knees so they are pointing toward the ceiling and your feet are flat on the floor. 3. Cross your arms over your chest. 4. Tip your chin slightly toward your chest without bending your neck. 5. Tighten your abdominal muscles and slowly raise your trunk (torso) high enough to lift your shoulder blades a tiny bit off of the floor. Avoid raising your torso higher than that, because it can put too much stress on your low back and it does not help to strengthen your abdominal muscles. 6. Slowly return to your starting position. Back Lifts Repeat these steps 510 times: 1. Lie on your abdomen (face-down) with your arms at your sides, and rest your forehead on the floor. 2. Tighten the muscles in your legs and your buttocks. 3. Slowly lift your chest off of the floor while you keep your hips pressed to the floor. Keep the back of your head in line with the curve in your back. Your eyes should be looking at the floor. 4. Hold this position for 35 seconds. 5. Slowly return to your starting position. SEEK MEDICAL CARE IF: Your back pain or discomfort gets much worse when you do an exercise. Your back pain or discomfort does not lessen within 2 hours after you exercise. If you have any of these problems, stop doing these exercises right away. Do not do them again unless your health care provider says that you can. SEEK IMMEDIATE MEDICAL CARE IF: You develop sudden, severe back pain. If this happens, stop doing the exercises right away. Do not do them again unless your health care provider says that you can. This information is not intended to replace advice given to you by your health care provider. Make sure you discuss any questions you have with your health care provider. Document Released: 08/09/2005 Document Revised: 03/22/2016 Document Reviewed: 08/26/2015 [employer] Interactive Patient Education 2016 [employer] No follow up information was provided. Extracted from: Title: Office Visit Note Author: Henry De Guzman MD Date: 12/04/16 Assessment/Plan Benign essential hypertension This issue was reviewed, appears stable, and current therapy continued except as mentioned. Appropriate lab was reviewed from the most recent appropriate entry and lab was ordered if needed in the c rocio/nursing orders, and follow up recommended generally in 90 days and no later then six months. The patient reports their blood pressure has been stable at home and is not having any significant or related problems. There has been no chest pain, chest pressure, soa/gatica. Refill meds. Needs to take ASA 81mg po daily. A work/school note was offered and deferred by the patient. Bright red rectal bleeding The patient's issue is nearly or completely resolved. There is no further issues or testing desired by them at this time. Resolved. Assessment/Plan 1.Post-operative state Pathology from the right face indicate basal cell carcinoma of both areas, final margins of excision free of involvement. Colonoscopy pathology indicates colonic mucosa with mild hyperplastic changes at 45 cm. With his family history of colon cancer in father and sister, recommendations are to repeat colonoscopy in 5 ye ars. There were no abnormalities noted to explain the rectal bleeding. Ordered: Postoperative Est [id number] [1] Chronic back pain The patient's issue is nearly or completely resolved. There is no further issues or testing desired by them at this time. Happy with his otc meds. IMPRESSION: 1. Transitional segment anatomy. 2. Advanced spondylotic changes, detailed above. 3. Large amount of stool throughout the visualized colon and rectum would be consistent with constipation. [2] GERD without esophagitis Trial of prilosec 40mg po daily. RTC iin 30 days and/or call report. Kidney disease The patient's issue is nearly or completely resolved. There is no further issues or testing desired by them at this time. Lab stable and lab pending. Kidney stones The patient's issue is nearly or completely resolved. There is no further issues or testing desired by them at this time. A work/school note was offered and deferred by the patient.
--- OUTSIDE RECORDS SUMMARY | 2017-12-30 15:14 | External Medical Summary | Referral Summary ---
:1955 Author Organization [facility] [place] Address [address] [place] [address] [place] [phone] Care Team Providers Name Role Phone Henry De Guzman Primary Care Physician Encounter [facility] Date(s): 01/19/16 - 01/19/16 [facility] [place] [address] [place] [address] [place] [phone]- Discharge Diagnosis: Post-operative state Discharge Disposition: 01-Home or Self Care Attending Physician: Luis Fernando Victoria MD Admitting Physician: Luis Fernando Victoria MD Referring Physician: Henry De Guzman MD Vital Signs Most recent to oldest [Reference Range]: 1 Temperature Tympanic [36.6-38.1 degC] 36.8 degC (01/19/16 8:32 AM) Problem List Condition Effective Dates Status Health [...] days, # 90 tabs, 1 Refill(s), Pharmacy: [facility] #[id number], 1 tabs Oral Daily,x90 days Start Date: [...] 2 first-degree relatives, diverticulosis, repeat in 5 [id number] left [id number] EGD: Benign polyp, GERD-TX w/PPI. Swallowing improved. F/U [id number] hernia. Schatski's mqge0mcrvpkctnjb polyp with low grade sfoehipty1X-nncsw NL, +Fam hx repeat in 5 yrs. 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 Ordered: Postoperative Est [id number]
--- OUTSIDE RECORDS SUMMARY | 2017-12-30 15:14 | External Medical Summary | Referral Summary ---
:1955 Author Organization [facility] Address [address] [place] [address] [place] [phone] Care Team Providers Name Role Phone Henry De Guzman Primary Care Physician Encounter VC Date(s): 11/01/15 - 11/01/15 [facility] [address] [place] [phone] Discharge Disposition: 01-Home or Self Care Attending Physician: Henry De Guzman MD Admitting Physician: Henry De Guzman MD Vital Signs Most recent to oldest [Reference Range]: 1 Blood Pressure [90-140/60-90 mmHg] 140/90 mmHg (11/01/15 3:40 PM) Problem List Condition Effective Dates Status [...] Active Medications hydrochlorothiazide 25 mg oral tablet 25 mg 1 tabs, Oral, Daily, X 90 days, # 90 tabs, 1 Refill(s), Pharmacy: [facility] #[id number], 1 tabs Oral Daily,x90 days Start Date: 11/01/15 Stop Date: 04/29/16 Status: Orderedlosartan 50 mg oral tablet 50 mg 1 tabs, Oral, Daily, # 90 tabs, 1 Refill(s), Pharmacy: [facility] # [id number], 1 tabs Oral Daily Start Date: 11/01/15 Status: OrderedNon-Formulary Med See Instructions, blood pressure, 0 Refill(s) Start Date: 03/14/14 Status: Ordered Results Hematology Most recent to oldest [Reference Range]: 1 WBC [4.8-10.8 10*3/uL] 6.4 10*3/uL (11/01/15 4:10 PM) RBC [4.60-6.20] 5.94 (11/01/15 4:10 PM) Hgb [14.0-18.0 gm/dL] 16.6 gm/dL (11/01/15 4:10 PM) Hct [42.0-52.0 %] 48.9 % (11/01/15 4:10 PM) MCV [82.0-99.0 fL] 82.3 fL (11/01/15 4:10 PM) MCH [27.0-32.0 pg] 27.9 pg (11/01/15 4:10 PM) MCHC [32.0-36.0 gm/dL] 33.9 gm/dL (11/01/15 4:10 PM) RDW [11.5-14.5 %] 13.7 % (11/01/15 4:10 PM) Platelet [150-400 10*3/uL] 221 10*3/uL (11/01/15 4:10 PM) MPV [8.8-14.8 fL] 11.1 fL (11/01/15 4:10 PM) Immature Granulocytes [0.0-1.0 %] 0.2 % (11/01/15 4:10 PM) Neutrophils [51-75 %] 57 % (11/01/15 4:10 PM) Lymphocytes [20-46 %] 33 % (11/01/15 4:10 PM) Monocytes [4-11 %] 7 % (11/01/15 4:10 PM) Eosinophils [0-4 %] 3 % (11/01/15 4:10 PM) Basophils [0-2 %] 1 % (11/01/15 4:10 PM) Neutro Absolute [1.90-7.00 10*3] 3.63 10*3 (11/01/15 4:10 PM) Lymph Absolute [0.80-3.30 10*3] 2.08 10*3 (11/01/15 4:10 PM) [place] Absolute [0.30-1.00 10*3] 0.44 10*3 (11/01/15 4:10 PM) Eos Absolute [0.00-0.50 10*3] 0.16 10*3 (11/01/15 4:10 PM) Baso Absolute [0.00-0.20 10*3] 0.03 10*3 (11/01/15 4:10 PM) Chemistry Most recent to oldest [Reference Range]: 1 Sodium Lvl [135-144 mEq/L] 140 mEq/L (11/01/15 4:10 PM) Potassium Lvl [3.5-5.2 mEq/L] 4.3 mEq/L (11/01/15 4:10 PM) Chloride [99-111 mEq/L] 108 mEq/L (11/01/15 4:10 PM) CO2 [23-31 mEq/L] 25 mEq/L (11/01/15 4:10 PM) AGAP [3-20] 7 (11/01/15 4:10 PM) BUN [8-26 mg/dL] 18 mg/dL (11/01/15 4:10 PM) Glucose Lvl [70-99 mg/dL] 96 mg/dL (11/01/15 4:10 PM) Creatinine Lvl [0.72-1.25 mg/dL] 0.98 mg/dL (11/01/15 4:10 PM) eGFR [>60 mL/min] >60 mL/min 1 (11/01/15 4:10 PM) Calcium Lvl [8.9-10.5 mg/dL] 9.2 mg/dL (11/01/15 4:10 PM) Albumin Lvl [3.4-4.8 gm/dL] 4.6 gm/dL (11/01/15 4:10 PM) Total Protein [6.2-8.1 gm/dL] 6.9 gm/dL (11/01/15 4:10 PM) Globulin [1.8-4.0 gm/dL] 2.3 gm/dL (11/01/15 4:10 PM) ALT [0-55 U/L] 20 U/L (11/01/15 4:10 PM) AST [5-34 U/L] 24 U/L (11/01/15 4:10 PM) Alk Phos [40-150 U/L] 70 U/L (11/01/15 4:10 PM) Bili Total [0.2-1.2 mg/dL] 1.8 mg/dL *HI* (11/01/15 4:10 PM) PSA (wihout Reflex Free) [0.0-4.5 ng/mL] 1.5 ng/mL 2 (11/01/15 4:10 PM) Chol [0-199 mg/dL] 134 mg/dL (11/01/15 4:10 PM) Trig [0-149 mg/dL] 145 mg/dL (11/01/15 4:10 PM) HDL [40-84 mg/dL] 57 mg/dL (11/01/15 4:10 PM) LDL [0-130 mg/dL] 48 mg/dL (11/01/15 4:10 PM) VLDL Cholesterol [0-28 mg/dL] 29 mg/dL *HI* (11/01/15 4:10 PM) Cardiac Risk [0.0-5.7] 2.4 (11/01/15 4:10 PM) 1Result Comment: Multiply eGFR results by 1.21 for race.2Result Comment: AUA PSA Best Practice Guidelines: Age-Adjusted PSA Values by Ethnic Group Age Range Asians - Caucasians Americans 40-49 0-2.0 0-2.0 0-2.5 50-59 0-3.0 0-4.0 0-3.5 60-69 0-4.0 0-4.5 0-4.5 70-79 0-5.0 0-5.5 0-6.5Urinalysis Most recent to oldest [Reference Range]: 1 UA Color Yellow (11/01/15 4:13 PM) UA Appear Clear (11/01/15 4:13 PM) UA pH [5.0-8.0] 5.5 (11/01/15 4:13 PM) UA Leuk Est [Negative] Negative (11/01/15 4:13 PM) UA Nitrite [Negative] Negative (11/01/15 4:13 PM) UA Protein [Negative] Negative (11/01/15 4:13 PM) UA Glucose [Negative] Negative (11/01/15 4:13 PM) UA Ketones [Negative] Negative (11/01/15 4:13 PM) UA Urobilinogen [<1.0 mg/dL] 0.2 mg/dL (11/01/15 4:13 PM) UA Bili [Negative] Negative (11/01/15 4:13 PM) UA Blood [Negative] Negative (11/01/15 4:13 PM) UA Spec Grav [1.003-1.030] 1.017 (11/01/15 4:13 PM) Type Voided (11/01/15 4:13 PM) Immunizations Vaccine Date Refusal Reason tetanus/diphth/pertuss (Tdap) adult/adol 06/27/10 influenza virus vaccine, live 06/27/10 Procedures Procedure Date Related Diagnosis Body Site Excision of basal cell carcinoma1 08/05/14 Balloon dilatation of esophagus 2011 Esophagogastroduodenoscopy2, 3 2011 Colonoscopy-normal 2009 Colonoscopy4, 5 2006 Colonoscopy-normal 1999 Hospitalization - left hand injury 1970 1above left [id number] EGD: Benign polyp, GERD-TX w/PPI. Swallowing improved. F/U [id number] hernia. Schatski's [id number] polyp with low grade [id number] NL, +Fam hx repeat in 5 yrs. 2009 Social History Social History Type Response Smoking Status Never smoker Assessment and Plan Extracted from: Title: Ambulatory Patient Education Author: Henry De Guzman MD Date: Family Medicine Heart Disease Prevention Heart disease is a leading cause of . There are many things you can do to help prevent heart disease. BE PHYSICALLY ACTIVE Physical activity is good for your heart. It helps control your blood pressure , cholesterol levels, and weight. Try to be physically active every day. Ask your health care provider what activities are best for you. BE A HEALTHY WEIGHT Extra weight can strain your heart and affect your blood pressure and cholesterol levels. Lose weight with diet and exercise if recommended by your health care provider. EAT HEART-HEALTHY FOODS Follow a healthy eating plan as recommended by your health care provider or dietitian. Heart-healthy foods include: High-fiber foods. These include oat bran, oatmeal, and whole-grain breads and cereals. Fruits and vegetables. Avoid: Alcohol. Fried foods. Foods high in saturated fat. These include meats, butter, whole dairy products, shortening, and coconut or palm oil. Salty foods. These include canned food, luncheon meat, salty snacks, and fast food. KEEP YOUR CHOLESTEROL LEVELS UNDER CONTROL Cholesterol is a substance that is used for many important functions. When your cholesterol levels are high, cholesterol can stick to the insides of your blood vessels, making them narrow or clog. This can lead to chest pain (angina) and a heart attack. Keep your cholesterol levels under control as recommended by your health care provider. Have your cholesterol checked at least once a year. Target cholesterol levels (in mg/dL) for most people are: Total cholesterol below 200. LDL cholesterol below 100. HDL cholesterol above 40 in men and above 50 in women. Triglycerides below 150. KEEP YOUR BLOOD PRESSURE UNDER CONTROL Having high blood pressure (hypertension) puts you at risk for stroke and other forms of heart disease. Keep your blood pressure under control as recommended by your health care provider. DO NOT USE TOBACCO PRODUCTS Tobacco smoke can damage your heart and blood vessels. Do not use any tobacco products including cigarettes, chewing tobacco, or electronic cigarettes. If you need help quitting, ask your health care provider. TAKE MEDICINES DIRECTED Take medicines only as directed by your health care provider. Ask your health care provider whether you should take an aspirin every day. Taking aspirin can help reduce your risk of heart disease and stroke. FOR MORE INFORMATION To find out more about heart disease, visit the [place] [employer]'s website at www.americanheart.org This information is not intended to replace advice given to you by your health care provider. Make sure you discuss any questions you have with your health care provider. Document Released: 02/13/2005 Document Revised: 04/20/2015 Document Reviewed: 08/26/2014 ExitCare Patient Information 2015 [employer] [facility]. No follow up information was provided. Extracted from: Title: Office Visit Note Author: Henry De Guzman MD Date: 11/01/15 Assessment/Plan SHARRI-inhibitor cough The patient's issue is nearly or completely resolved. There is no further issues or testing desired by them at this time. Resolved on losartan. Adenomatous polyp with low grade dysplasia Appt pending with Dr. AMATO. BCC (basal cell carcinoma) History of. Recheck with Dr. AMATO forlesion on right cheek. Benign essential hypertension Please make the medication adjustments we discussed. Please notify the office for any difficulties or concerns. Losartan to 50mg po daily. Ordered: CBC w/ Differential Comprehensive Metabolic Panel Urinalysis with Culture if Indicated Bright red rectal bleeding To Dr. AMATO for colonoscopy. Lab pending. A work/school note was offered and deferred by the patient. The patient has family members present who are agreeable with today's plan and have no additional concerns or requests. Cass here. Kidney stones The patient's issue is nearly or completely resolved. There is no further issues or testing desired by them at this time. Schatzki's ring The patient's issue is nearly or completely resolved. There is no further issues or testing desired by them at this time. Denies GERD and has consult pending with Dr. AMATO anyway. Orders: hydrochlorothiazide, 25 mg 1 tabs, Oral, Daily, X 90 days, # 90 tabs , 1 Refill(s), Pharmacy: [facility] #[id number], 1 tabs Oral Daily,x90 days losartan, 50 mg 1 tabs, Oral, Daily, # 90 tabs, 1 Refill(s), Pharmacy: [facility] #[id number], 1 tabs Oral Daily Lipid Panel Prostate Specific Antigen Addendum by Henry De Guzman MD on November 01, 2015 16:05:39 CDT ASA 81mg po daily.
--- OUTSIDE RECORDS SUMMARY | 2017-12-30 15:14 | External Medical Summary | Referral Summary ---
:1955 Author Organization [facility], [facility] Care Address [address] [place] [address] [place] [phone] Care Team Providers Name Role Phone Henry De Guzman Primary Care Physician Encounter Date(s): 07/13/16 - 07/13/16 [facility], [address] [place] [phone] [place] Discharge Diagnosis: Right maxillary sinusitis Discharge Disposition: 01-Home or Self Care Attending Physician: Dev Hernandez PA-C Admitting Physician: Dev Hernandez PA-C Vital Signs Most recent to oldest [Reference Range]: 1 Temperature Tympanic [36.6-38.1 degC] 36.9 degC (07/13/16 1:09 PM) Peripheral Pulse Rate [60-100 bpm] 84 bpm (07/13/16 1:09 PM) Blood Pressure [90-140/60-90 mmHg] 142/90 mmHg *HI* (07/13/16 1:09 PM) SpO2 95 % (07/13/16 1:09 PM) Problem List Condition Effective Dates Status [...] spasm, # 60 tabs, 0 Refill(s), Pharmacy: [facility] #[id number], 1 tabs Oral TID,PRN:as needed for spasm Start Date: 05/03/16 Status: OrderedKeflex 500 mg oral capsule 500 mg 1 caps, Oral, q6hr, X 14 days, # 56 caps, 0 Refill(s), Pharmacy: [facility] #[id number], 1 caps Oral q6hr,x14 days Start Date: 07/13/16 Stop Date: 07/27/16 Status: Orderedlosartan 50 mg oral tablet See Instructions, TAKE ONE TABLET BY MOUTH DAILY, # 90 tabs, eRx: [facility] #[id number], TAKE ONETABLET BY MOUTH DAILY Start Date: 06/20/16 Status: Orderedlosartan-hydrochlorothiazide 50 mg-12.5 mg oral tablet 1 tabs, Oral, Daily, 0 Refill(s) Start Date: 05/04/16 Status: OrderedtraMADol 50 mg oral tablet 50 mg 1 tabs, Oral, q12hr, as needed for pain, S. Alfonso, # 60 tabs, 0 Refill(s ) Start Date: 05/03/16 Status: Ordered Results No data available for this section Immunizations Given and Recorded Vaccine Date Status [...] 2 first-degree relatives, diverticulosis, repeat in 5 [id number] left [id number] EGD: Benign polyp, GERD-TX w/PPI. Swallowing improved. F/U [id number] hernia. Schatski's [id number] polyp with low grade [id number] NL, +Fam hx repeat in 5 yrs. 2010 Social History Social History Type Response Smoking Status Never smoker Assessment and Plan Extracted from: Title: sinusitis right Author: Dev Hernandez PA-C Date: 07/13/16 Assessment/Plan Right maxillary sinusitis Keflex 500 mg 4 times a day 14 days was initiated. Diagnosis and treatment discussed. Recommended [id number] Flonase or Nasonex, patient states he's tried these and these did not help, sali ne rinses and sinus washes. Patient advised to follow up with PCP in 2-3 days if symptoms not improving. Patient stable upon discharge, alert and orientated with no apparent distress, and indicated understanding of discharge instructions.
[2017-12-30] MEDS ORDERED: SALINE FLUSH 10ml SYRINGE IVF PRN (15:25)
[2017-12-30] MEDS ORDERED: METOCLOPRAMIDE 10mg/2ml INJECTION IVP ONE (15:25)
[2017-12-30] MEDS ORDERED: NS 1,000 ML IV ONE (15:25)
--- NOTE | 2017-12-30 15:31 | Emergency Department Report ---
Male Urogenital HPI - General Chief complaint: Urogenital-Male Stated complaint: unable to urinate Source: patient Mode of arrival: ambulatory Limitations: no limitations - History of Present Illness HPI Narrative: Pt has had difficulty urinating for the past 3-4 days. He is having difficulty initiating stream and emptying his bladder completely. Pt is just finishing a 10 day motorcycle trip. He has not been eating or drinking as normal. He has been nauseated. He thinks he has had a fever but has not actually taken his temp. He denies flank or low back pain. He also denies vomiting, diarrhea, chest pain, cough, or history of BPH. - Related Data Home Medications Medication Instructions Recorded Confirmed hydroCHLOROthiazide 25 mg PO DAILY #0 07/12/10 12/30/17 [Hydrochlorothiazide] Carvedilol [Coreg] 12.5 mg PO DAILY #0 tab 12/24/15 12/30/17 Aspirin [Ecotrin] 81 mg PO DAILY 12/30/17 12/30/17 Allergies Allergy/AdvReac Type Severity Reaction Status Date / Time Penicillins Allergy Intermediate RASH Verified 12/30/17 15:02 Review of Systems All systems: reviewed and negative except as stated Cardiovascular: Reports: as per HPI Respiratory: Reports: as per HPI Gastrointestinal: Reports: as per HPI Genitourinary: Reports: as per HPI Musculoskeletal: Reports: as per HPI Physical Exam - Limitations Limitations: no limitations - General General appearance: alert, in no apparent distress - Normal Exams: Head:: Normocephalic without trauma Eyes:: Pupils are PERRLA w/ EOMI Chest/Respirations:: Clear all salazar, with good airflow Cardiovascular:: Regular rate and rhythm, without murmur or gallop, Pulses 2+ all extremities, capillary refill, <2 seconds all extremities Abdomen:: Bowel sounds positive, soft, non-tender, non-distended Musculoskeletal:: No tenderness, or deformity noted, good range of motion, all extremities Integumentary:: No rashes Neurological:: Patient is alert, and oriented, cranial nerves, motor/sensory/ cerebellar, exams w/o gross deficits, to observation Psychiatric:: Patient exhibits, appropriate attention, emotion and affect Course Vital Signs Temperature 98.3 F 12/30/17 14:45 Pulse Rate 99 12/30/17 14:45 Respiratory Rate 24 12/30/17 14:45 Blood Pressure 156/93 H 12/30/17 14:45 Pulse Oximetry 97 12/30/17 14:45 Temperature 98.3 F 12/30/17 14:48 Pulse Rate 99 12/30/17 14:48 Respiratory Rate 24 12/30/17 14:48 Blood Pressure 156/93 H 12/30/17 14:49 Pulse Oximetry 97 12/30/17 14:48 Urogenital-Male - MDM Narrative Medical decision making narrative: Labs reveal a UTI with 20% bands, a normal white count, and a normal lactate. Pt started on IV antibiotics and received a liter of NS. Findings and concerns discussed with hospitalist who will admit observation. Pt and family voice understanding and agree to plan. - Differential Diagnosis Likely: urinary tract infection, urethritis, epididymitis, prostatitis, acute retention of urine - Lab Data Attestation: I reviewed the patient's lab results. Result diagrams: 12/30/17 15:33 12/30/17 15:33 Lab Results 12/30/17 Range/Units 15:11 Ur Collection Type Urine, void-cc/notcc Urine Color Yellow (YELLOW) Urine Clarity Cloudy Urine pH 6.0 (5.0-8.0) Ur Specific [place] 1.025 (1.015-1.025) Urine Protein 2+ A (NEGATIVE) Urine Glucose (UA) Trace A (NEGATIVE) Urine Ketones Negative (NEGATIVE) Urine Occult Blood 3+ A (NEGATIVE) Urine Nitrate Positive A (NEGATIVE) Urine Bilirubin Negative (NEGATIVE) Urine Urobilinogen 0.2 (NORMAL) EU/DL Ur Leukocyte Esterase 2+ A (NEGATIVE) - Radiology Data Attestation: I reviewed the patient's radiology results. CT read per V rad with no acute findings Disposition Clinical Impression: Bandemia Urinary tract infection Qualifiers: Urinary tract infection type: acute cystitis Hematuria presence: with hematuria Qualified Code(s): N30.01 - Acute cystitis with hematuria Disposition: 02 To [facility] Condition: Improved Prescriptions: No Action hydroCHLOROthiazide [Hydrochlorothiazide] 25 mg PO DAILY #0 Carvedilol [Coreg] 12.5 mg PO DAILY #0 tab Aspirin [Ecotrin] 81 mg PO DAILY Referrals: Henry De Guzman MD [Primary Care Provider] - Time of Disposition: 17:46 - Seen By: midlevel
[2017-12-30] MEDS ORDERED: CEFTRIAXONE (ER USE ONLY) 1 GM in NS 100 ML IV ONE (15:59)
[2017-12-30] MEDS ORDERED: IOHEXOL 300mg/ml 100ml INJECTION ONE (16:28)
[2017-12-30] MEDS ORDERED: SALINE FLUSH 10ml SYRINGE ONE (16:29)
[2017-12-30] MEDS ORDERED: PROCHLORPERAZINE 10 MG/2 ML INJECTION IVP PRN (18:21)
[2017-12-30] MEDS ORDERED: BISACODYL 10 MG SUPPOSITORY RECTALLY PRN (18:21)
[2017-12-30] MEDS: NS with KCL 20 mEq 1,000 ML IV SCH (18:28)
[2017-12-30] MEDS: ACETAMINOPHEN 325 MG TABLET PO PRN (18:28)
[2017-12-30 18:48] VITALS: BMI 25.8
--- NOTE | 2017-12-30 18:57 | History & Physical Report ---
History of Present Illness Date: 12/30/17 Chief complaint: Difficulty urinating, chills HPI: 62 y/o male presents to ED with difficulty urinating and chill. Just back from a 10 day motorcycle trip to [place]. Reports developing chill at night 3-4 days ago. Urine starting to become more slow and difficult to start (typically has difficulty initiating urine stream first thing in morning, but resolved thereafter, rarely needs to be up at night to urinate). Urine slow and more dribbling for last 3-4 days. Feels he is not emptying his bladder. Developed urgency to urinate any time he would get up. Urine became painful to pass. Appetite and oral drive decreasing over this time. Not eating or drinking as usual. Feels dizzy and unsteady with positional changes. Stools more slow. Had to leave his motorcycle group due to this symptoms. Call family who drove him from [facility] to home. In the car, started chilling and had to have A/C shut off and opened windows for comfort. Went strait to ED for evaluation rather than going home. In ED, urine showing evidence for infection. WBC normal at 8.9 but 20% bands noted. Tachycardic, but not hypotensive. Lactate normal. Placed in OBS for further evaluation and treatment. Review of Systems All systems PM: 10-point ROS was reviewed, no additional remarkable complaints except - Constitutional Constitutional: Present: anorexia, fever(s) - EENMT Eyes: Present: blurry vision Balance: Present: vertigo Mouth/Throat: Absent: painful swallowing - Cardiovascular Cardiovascular: Absent: chest pain, palpitations, dyspnea on exertion - Respiratory Respiratory: Absent: cough, dyspnea on exertion, pain on inspiration, chest congestion - Gastrointestinal Gastrointestinal: Present: constipation. Absent: odynophagia - Genitourinary Genitourinary: Present: as per HPI. Absent: flank pain - Musculoskeletal Musculoskeletal: Present: muscle cramps, muscle weakness. Absent: back pain - Neurological Neurological: Present: dizziness, headache(s) - Psychiatric Psychiatric: Absent: difficulty concentrating - Allergic/Immunologic Allergic/Immunologic: Present: seasonal rhinorrhea Past Medical History Medical History Updates: HTN, Schatzki's ring with hx dilitation, Hiatal hernia , Hx esophagitis, Hx gastric polyp, Hx colonic polyp, Hx kidney stones, Hx sinusis, Hx skin CA Surgical History: Hx hand surgery due to injury. EGD/Colonoscopy Family History Updates: Mother living. Father had DM and skin cancers Family History: As Above - Social History Smoking status: Never smoker Alcohol intake frequency: does not drink Housing: house Household members: spouse Current occupational status: employed Social history: Dr De Guzman PCP Medications Home Medications Medication Instructions Recorded Confirmed Type hydroCHLOROthiazide 25 mg PO DAILY #0 07/12/10 12/30/17 History [Hydrochlorothiazide] Carvedilol [Coreg] 12.5 mg PO DAILY #0 tab 12/24/15 12/30/17 History Aspirin [Ecotrin] 81 mg PO DAILY 12/30/17 12/30/17 History Allergies Allergy/AdvReac Type Severity Reaction Status Date / Time Penicillins Allergy Intermediate RASH Verified 12/30/17 15:02 Exam Vital Signs: Temperature 102.0 F H 12/30/17 18:20 Pulse Rate 100 12/30/17 18:20 Respiratory Rate 18 12/30/17 18:20 Blood Pressure 140/77 H 12/30/17 18:20 Pulse Oximetry 95 12/30/17 18:20 Height/Weight/BMI: Height 1.91 m Weight 93.7 kg Body Mass Index 25.8 - Constitutional Present: well nourished, well developed, average body habitus, cooperative - Routine HEENT Exam Head: Present: normocephalic, atraumatic Eye: Present: EOMI, PERRL, normal accommodation ENT: Present: mucous membranes dry - Routine Neck Exam Present: supple, full ROM, trachea midline - Routine Respiratory Exam Present: CTA bilaterally. Absent: rales, respiratory distress, rhonchi, stridor , wheezes - Routine Cardiovascular Exam Present: no murmur, tachycardia (Regular) - Routine Abdominal Exam Present: soft, non distended, non tender. Absent: normoactive bowel sounds ( Decreased) - Routine Extremities Exam Present: pulses intact. Absent: cyanosis, clubbing - Routine Skin Exam Present: dry, warm - Routine Neurological Exam Present: alert, oriented X3, CN II-XII intact, vision grossly intact, normal speech. Absent: motor deficit, altered mental status - Routine Psychiatric Exam Present: normal affect, normal thought process, cooperative Results - Labs CBC & Chem 7: 12/30/17 15:33 12/30/17 15:33 Assessment and Plan Assessment and Plan: Assessment Urinary tract infection - possible prostatitis Bandemia Tachycardia Clinical dehydration Hypokalemia (POA) Elevated bilirubin Thrombocytopenia HTN Hx Schatzki's ring Recent long motorcycle trip Plan OBS admission IV ceftriaxone initiated in ED, will continue daily. Check urine C/S. IVF of NS with 20mEq KCl at 100cc/hr for hydration. Bladder scan prn secondary to urinary symptoms. Hold HCTZ secondary to dehydration and hypokalemia. Clear liquids as able, increasing as tolerated. SCD for DVT prevention. Recheck CMP in am due to hypokalemia and elevated bilirubin. Repeat CBC in am secondary to UTI. Full code as per his requests. Care to return to Dr De Guzman at time of discharge from [facility]. DVT Prophylaxis: SCD's Resuscitation Status: Full Code - Physician Narrative Physician: Russell Maier MD Narrative: Date: 12/30/17 Time: 1849 Hospital Course Summary Disclaimer: The visit summary below is not to be considered part of the above Progress Note. Hospital Course: 12/30/17 OBS admission IV ceftriaxone initiated in ED, will continue daily. Check urine C/S. IVF of NS with 20mEq KCl at 100cc/hr for hydration. Bladder scan prn secondary to urinary symptoms. Hold HCTZ secondary to dehydration and hypokalemia. Clear liquids as able, increasing as tolerated. SCD for DVT prevention. Recheck CMP in am due to hypokalemia and elevated bilirubin. Repeat CBC in am secondary to UTI. Full code as per his requests. Care to return to Dr De Guzman at time of discharge from [facility].
[2017-12-31] MEDS: NS 1,000 ML IV ONE ×2 (00:48→00:53)
[2017-12-31] MEDS: ACETAMINOPHEN 325 MG TABLET PO PRN ×2 (04:18→09:35)
[2017-12-31] MEDS: NS with KCL 20 mEq 1,000 ML IV SCH ×2 (05:40→16:25)
--- NOTE | 2017-12-31 07:18 | CT Scan Report ---
Indication: severe UTI, Bandemia PROCEDURE: CT abdomen pelvis w con: Encounter: Initial Comparison: None Technique: Axial CT images were performed through the abdomen and pelvis after the administration of intravenous contrast. Coronal and sagittal two-dimensional reformats. Automated Exposure Control and Iterative Reconstruction dose reducing techniques were utilized. Contrast: Omnipaque 300 100 mL Findings: The lung bases show mild atelectasis. The liver is unremarkable. The gallbladder, spleen, pancreas and left adrenal gland are normal. Tiny 6 mm right adrenal myelolipoma. Area of decreased attenuation in the interpolar area of the left kidney measuring 3 cm in size. 2 mm lower pole left renal nonobstructing stone. No enhancing renal masses. Bladder is thick-walled with inflammation. Prostate is enlarged. Fluid in the rectum. No evidence of a bowel obstruction. The appendix is normal. Bone windows show mild degenerative change in the spine. Impression: Probable cystitis. No definite CT evidence of pyelonephritis. There is a preliminary report by [facility]. .
[2017-12-31] MEDS: ASPIRIN *EC* 81 MG TABLET PO SCH (09:35)
[2017-12-31] MEDS: CARVEDILOL 12.5 MG TABLET PO SCH (09:35)
[2017-12-31] MEDS: CEFTRIAXONE 1 G in NS 100 ML IV SCH (13:24)
[2017-12-31] MEDS: IBUPROFEN 600 MG TABLET PO PRN (13:24)
--- NOTE | 2017-12-31 13:28 | Progress Note ---
- Date 12/31/17 Subjective: F/U: Urinary tract infection - possible prostatitis, Bandemia, Tachycardia Little improvement. Still having temp elevations/fever/chills despite antibiotics, antipyretics, and IVF. Very tired/weak-taxing to move in bed, feeling unsteady with positional changes when attempts to get up. No appetite- taking very little food/liquids in. Passing flatus and did have stool. Breathing stable-not feeling SOA or congestion. Objective Vital signs: Temperature 101 F H 12/31/17 12:26 Pulse Rate 80 12/31/17 12:26 Respiratory Rate 18 12/31/17 12:26 Blood Pressure 114/65 12/31/17 12:26 Pulse Oximetry 92 12/31/17 12:26 Height/Weight/BMI: Height 1.91 m Weight 94.3 kg Body Mass Index 25.8 - Constitutional Present: mild distress, well nourished, well developed, average body habitus, cooperative Comments: Looks weak and tired-not improved from yesterday in general appearance. - Routine HEENT Exam Head: Present: normocephalic, atraumatic Eye: Present: EOMI, PERRL ENT: Present: mucous membranes moist - Routine Respiratory Exam Present: CTA bilaterally. Absent: rales, respiratory distress, rhonchi, wheezes , crackles - Routine Cardiovascular Exam Present: RRR, no murmur - Routine Abdominal Exam Present: soft, non distended, non tender. Absent: normoactive bowel sounds ( Decreased), guarding - Routine Extremities Exam Present: no edema, pulses intact. Absent: cyanosis, clubbing - Routine Musculoskeletal Exam Musculoskeletal: Present: no clubbing or cyanosis - Routine Skin Exam Present: warm. Absent: dry (Moist) - Routine Neurological Exam Present: alert, oriented X3, CN II-XII intact, moving all extremities, vision grossly intact, hearing grossly intact, normal speech. Absent: motor deficit, altered mental status - Routine Psychiatric Exam Present: normal affect, normal thought process, cooperative Results - Labs CBC & Chem 7: 12/31/17 03:12 12/31/17 03:12 Microbiology Results: Microbiology 12/31/17 03:12 Peripheral/Iv Start Blood Culture - Preliminary Culture Initiated - Results Pending Assessment and Plan (1) Urinary tract infection Current visit: Yes Status: Acute Assessment and Plan: Assessment Urinary tract infection - possible prostatitis -- E coli Sepsis syndrome secondary to UTI. SIRS criteria - Bandemia, temp elevation,elevated blood sugar without known DM. Bandemia Tachycardia Clinical dehydration Hypokalemia (POA) Elevated bilirubin Thrombocytopenia HTN Hx Schatzki's ring Recent long motorcycle trip Plan Persistent temp elevations despite treatment initiated in OBS. Urine growing Ecoli. Will change admission status to inpatient to continue care needs exceeding scope of OBS. Rocephin 1 gram IV q 24 for urinary coverage - check on urine C/S. Will continue IVF of NS with 20KCl due to decreased oral drive and continued temp elevation. Patient currently not able to maintain hydration on his own without support. Acetaminophen/ibuprofen prn pain/temp elevation. Will need to start increasing activities once temp elevations decrease. Repeat CBC in am due to UTI with sepsis syndrome. Recheck BMP in am due to IVF use. Case discussed with patient's . Time spent with patient care 25 minutes. DVT Prophylaxis: SCD's Resuscitation Status: Full Code - Time spent with patient Time with patient PN: 25 minutes - Physician Narrative Physician: Russell Maier MD Narrative: Date: 12/31/17 Time: 1323 Hospital Course Summary Disclaimer: The visit summary below is not to be considered part of the above Progress Note. Hospital Course: 12/30/17 OBS admission IV ceftriaxone initiated in ED, will continue daily. Check urine C/S. IVF of NS with 20mEq KCl at 100cc/hr for hydration. Bladder scan prn secondary to urinary symptoms. Hold HCTZ secondary to dehydration and hypokalemia. Clear liquids as able, increasing as tolerated. SCD for DVT prevention. Recheck CMP in am due to hypokalemia and elevated bilirubin. Repeat CBC in am secondary to UTI. Full code as per his requests. Care to return to Dr De Guzman at time of discharge from [facility]. 12/31/17 Persistent temp elevations despite treatment initiated in OBS. Urine growing Ecoli. Will change admission status to inpatient to continue care needs exceeding scope of OBS. Ceftriaxone 1 gram IV q 24 for urinary coverage - check on urine C/S. Will continue IVF of NS with 20KCl due to decreased oral drive and continued temp elevation. Patient currently not able to maintain hydration on his own without support. Acetaminophen/ibuprofen prn pain/temp elevation. Will need to start increasing activities once temp elevations decrease.
[2017-12-31] MEDS: LACTOBACILLUS (15B cfu) CAPSULE PO SCH (17:47)
[2018-01-01] MEDS: NS with KCL 20 mEq 1,000 ML IV SCH ×2 (02:07→12:05)
[2018-01-01] MEDS: ACETAMINOPHEN 325 MG TABLET PO PRN ×2 (02:13→08:35)
[2018-01-01] MEDS: CARVEDILOL 12.5 MG TABLET PO SCH (08:34)
[2018-01-01] MEDS: LACTOBACILLUS (15B cfu) CAPSULE PO SCH ×2 (08:34→12:05)
[2018-01-01] MEDS: ASPIRIN *EC* 81 MG TABLET PO SCH (08:35)
[2018-01-01] MEDS: IBUPROFEN 600 MG TABLET PO PRN (11:47)
[2018-01-01 12:11] VITALS: BP 123/72; PULSE 67; RESP 18; TEMP 97.8; O2SAT 95
[2018-01-01] MEDS: CEFTRIAXONE 1 G in NS 100 ML IV SCH (13:05)
--- NOTE | 2018-01-01 14:47 | Discharge Summary ---
Discharge Information Date of admission: 12/31/17 13:35 Anticipated date of discharge: 01/01/18 Attending Physician: Jorge L Stone MD Primary care physician: Henry De Guzman MD - Discharge Diagnosis (1) Urinary tract infection Status: Acute Urinary tract infection - possible prostatitis -- E coli Sepsis syndrome secondary to UTI. SIRS criteria - Bandemia, temp elevation,elevated blood sugar without known DM. Bandemia Tachycardia Clinical dehydration Hypokalemia (POA) Elevated bilirubin Thrombocytopenia HTN Hx Schatzki's ring Recent long motorcycle trip - Laboratory Labs: 01/01/18 04:02 01/01/18 04:02 Dismissal labs 01/01/18 01/01/18 04:02 04:02 WBC 4.1 L RBC 4.19 L Hgb 12.0 L Hct 36.3 L Plt Count 93 L Sodium 142 Potassium 3.8 Chloride 111 H Carbon Dioxide 25 Anion Gap 6 Creatinine 0.9 Glucose 122 H Calcium 7.5 L - Microbiology Urine culture - pansensitive - e coli - Radiology Radiology: Date of Exam: 12/30/17 Indication: severe UTI, Bandemia PROCEDURE: CT abdomen pelvis w con: Findings: The lung bases show mild atelectasis. The liver is unremarkable. The gallbladder, spleen, pancreas and left adrenal gland are normal. Tiny 6 mm right adrenal myelolipoma. Area of decreased attenuation in the interpolar area of the left kidney measuring 3 cm in size. 2 mm lower pole left renal nonobstructing stone. No enhancing renal masses. Bladder is thick-walled with inflammation. Prostate is enlarged. Fluid in the rectum. No evidence of a bowel obstruction. The appendix is normal. Bone windows show mild degenerative change in the spine. Impression: Probable cystitis. No definite CT evidence of pyelonephritis. History of Present Illness HPI: 62 y/o male presents to ED with difficulty urinating and chill. Just back from a 10 day motorcycle trip to [place]. Reports developing chill at night 3-4 days ago. Urine starting to become more slow and difficult to start (typically has difficulty initiating urine stream first thing in morning, but resolved thereafter, rarely needs to be up at night to urinate). Urine slow and more dribbling for last 3-4 days. Feels he is not emptying his bladder. Developed urgency to urinate any time he would get up. Urine became painful to pass. Appetite and oral drive decreasing over this time. Not eating or drinking as usual. Feels dizzy and unsteady with positional changes. Stools more slow. Had to leave his motorcycle group due to this symptoms. Call family who drove him from [facility] to home. In the car, started chilling and had to have A/C shut off and opened windows for comfort. Went strait to ED for evaluation rather than going home. In ED, urine showing evidence for infection. WBC normal at 8.9 but 20% bands noted. Tachycardic, but not hypotensive. Lactate normal. Placed in OBS for further evaluation and treatment. Objective Vital signs: Temperature 97.8 F 01/01/18 11:00 Pulse Rate 67 01/01/18 11:00 Respiratory Rate 18 01/01/18 11:00 Blood Pressure 123/72 01/01/18 11:00 Pulse Oximetry 95 01/01/18 11:00 Height/Weight/BMI: Weight 96.5 kg - Constitutional Present: no acute distress, well developed - Routine HEENT Exam Head: Present: normocephalic, atraumatic Eye: Present: EOMI, PERRL ENT: Present: mucous membranes moist, oropharynx clear, external ear normal - Routine Respiratory Exam Present: CTA bilaterally. Absent: wheezes, crackles - Routine Cardiovascular Exam Present: RRR. Absent: murmur, gallop, rubs - Routine Abdominal Exam Present: soft, normoactive bowel sounds, non distended, non tender. Absent: organomegaly - Routine Extremities Exam Present: full ROM, normal capillary refill. Absent: cyanosis, edema - Routine Skin Exam Present: intact, dry. Absent: jaundice, rash - Routine Neurological Exam Present: alert, oriented X3, CN II-XII intact, moving all extremities (5/5 strength). Absent: altered mental status - Routine Psychiatric Exam Present: normal affect. Absent: depressed, anxious Hospital Course This is a general summary of the patient's hospital course. For more details refer to the complete medical record. Hospital course: 12/30/17 OBS admission IV ceftriaxone initiated in ED, will continue daily. Check urine C/S. IVF of NS with 20mEq KCl at 100cc/hr for hydration. Bladder scan prn secondary to urinary symptoms. Hold HCTZ secondary to dehydration and hypokalemia. Clear liquids as able, increasing as tolerated. SCD for DVT prevention. Recheck CMP in am due to hypokalemia and elevated bilirubin. Repeat CBC in am secondary to UTI. Full code as per his requests. Care to return to Dr De Guzman at time of discharge from [facility]. 12/31/17 Persistent temp elevations despite treatment initiated in OBS. Urine growing Ecoli. Will change admission status to inpatient to continue care needs exceeding scope of OBS. Ceftriaxone 1 gram IV q 24 for urinary coverage - check on urine C/S. Will continue IVF of NS with 20KCl due to decreased oral drive and continued temp elevation. Patient currently not able to maintain hydration on his own without support. Acetaminophen/ibuprofen prn pain/temp elevation. Will need to start increasing activities once temp elevations decrease. 01/01/18 Patient stable to [place] home today. No c/o's. Keflex 500ng TID x 5 more days to complete 7 days of atbx. Hold HCTZ as BP's are currently nl. Had mild hypokalemia on admission. Might consider amlodipine or other antihypertensive if SBP >140 consistently Time spent with patient: discharge greater than 30 minutes Resuscitation Status: Full Code Discharge Plan - Discharge Disposition Discharge Date: 01/01/18 Disposition: 01 Discharged Home, Self-Care *Condition: Improved Reason For Visit (Visit label in EMR): UTI - Discharge Medications *Discharge Medications: New cephALEXin [Keflex] 500 mg PO TID #15 cap Continue Carvedilol [Coreg] 12.5 mg PO DAILY #0 tab Aspirin [Ecotrin] 81 mg PO DAILY Discontinued hydroCHLOROthiazide [Hydrochlorothiazide] 25 mg PO DAILY #0 - Discharge Packet/Instructions *Diet: low salt/heart healthy *Activity: as tolerated *Pain Management/Treatment: n/a *Wound Care: n/a Additional Instructions: Hold HCTZ. Monitor blood pressure and take BP log to follow-up appt with Dr. De uGzman. *Expected Signs/Symptoms: continued improvement *Notify Physician if: you develop fever, blood in your urine or any new/ concerning symptoms *During Business Hours Contact: Dr De Guzman *After Business Hours Contact: Dr De Guzman's office and follow after hours instructions *Pending Lab/Results: No Pending Lab - Referrals/Follow Up *Referrals/Follow Up: Henry De Guzman MD [Primary Care Provider] - 1 Week - Patient Handouts Patient Handouts: Urinary Tract Infection in Older Adults (GEN) - Dismissal Complete Discharge Instructions are:: Complete Physician Narrative - Narrative Physician: other (Jorge L Stone MD) Attestation Narrative: Date: 01/01/18 Time: 4692
== END 2018-01-01 15:20 | disposition home or self-care (01) | DRG 872 ==
LOC: EDHOLD 14:44 → ED 14:44 → MED 18:15 → SUATTDRO 12-31 13:35
PROVIDERS: ADMIT Hospitalist; ATTEND Family Medicine